=== PATIENT | female | born 1950 | race Caucasian/White ===

== ENCOUNTER 2017-02-19 10:42 | Emergency (ER) | payer MEDICARE, BC, OTHER ==
[~2017-02-19] VITALS: Ht 171.4 cm; Wt 65.9 kg
[2017-02-19] MEDS ORDERED: OXYB15TA (11:00)
[2017-02-19] MEDS ORDERED: CLON0.5T (11:00)
[2017-02-19] MEDS ORDERED: PARO20TA3 (11:00)
[2017-02-19] MEDS ORDERED: OMEP20CA3 (11:00)
[2017-02-19] MEDS ORDERED: MORPHINE 2 MG/ML 1ML SYRINGE IM ONE (11:30)
--- NOTE | 2017-02-19 12:17 | REP ---
Right wrist four views: There is a Colles fracture of the distal wrist with impaction of the fracture fragments. There is no displacement, however there is posterior angulation of the distal fracture fragment. Signed by Galen Rae MD 02/19/2017 12:09 P
--- NOTE | 2017-02-19 12:20 | REP ---
Right hand four views: Comparison is 01/06/2015. There is an acute Colles fracture of the distal radius. The fracture fragments are impacted. There is no displacement. There is an old healed fracture at the base of the fifth digit metacarpal. Mineralization and joint spaces otherwise are unremarkable for patient age. No foreign bodies or calcifications. Signed by Galen Rae MD 02/19/2017 12:11 P
--- NOTE | 2017-02-19 12:21 | REP ---
Right forearm AP and lateral views: There is a Colles fracture of the distal radius. No other fractures are identified. There is no dislocation. Mineralization is normal. There are no calcifications or foreign bodies. Signed by Galen Rae MD 02/19/2017 12:12 P
[2017-02-19] MEDS ORDERED: LIDOCAINE 1% MDV 20ML VIAL IM ONE (12:45)
[2017-02-19] MEDS ORDERED: NORCOTAB PO (13:51)
[2017-02-19 14:04] VITALS: BP 126/75
--- NOTE | 2017-02-19 14:19 | ER ---
DATE OF CONSULTATION: 02/19/2017 CHIEF COMPLAINT: Right wrist fracture. HISTORY: This is a 66-year-old [id number] woman who is retired and who fell today on the ice injuring her right wrist. She is noted to have some dorsal angulation and Colles fracture, right wrist. I was asked to evaluate her for this. She denies any other injury. PAST MEDICAL HISTORY: Otherwise unremarkable aside from depression. MEDICATIONS: Include paroxetine. ALLERGIES: She has no known drug allergies. SOCIAL HISTORY: She is a nonsmoker. Lives here locally. Retired from working in various hospitals. PHYSICAL EXAMINATION: She is alert, oriented no acute distress. HEENT extraocular muscles intact. She has a regular rate and rhythm to her pulse. Nonlabored breathing. Benign abdomen. Right upper extremity demonstrates some dorsal angular deformity of her wrist. She has some decreased range of motion of her fingers but good perfusion. She reports intact sensation throughout her fingertips, and again has decreased range of motion of her fingers, cannot make full fist. Skin is otherwise intact. Radiographs were reviewed which demonstrated distal radius Colles fracture with dorsal angulation to a moderate degree. IMPRESSION: Right Colles fracture, dysangulated. RECOMMENDATIONS: I have talked to her about the options of surgical versus closed treatment and casting. I explained that sometimes these need plates or external fixator devices. Typically, I would try a closed reduction with a hematoma block and she wished to go ahead with this. She understood small risk of malunion, nonunion, loss of reduction, need for further surgery, stiffness, ongoing pain, small risk of infection, nerve injury. She does mention that she had a fifth metacarpal fracture in the past and had significant difficulty getting at the heal. I then under sterile conditions injected some 1% plain lidocaine into her fracture site. She tolerated this well. After a few minutes, I hung her fingers up in a finger traps, put some weight on her upper arm and then gently manipulated the fracture into a much improved clinical position. Her fingers move quite normally and her wrist appeared to be in excellent alignment. Post reduction x-rays, AP and lateral, are viewed and they show excellent reduction and alignment of the fracture in both views. It is essentially anatomically reduced. The mold is in some flexion and ulnar deviation to try to keep this fracture well reduced. IMPRESSION: 1. Status post Colles fracture. 2. Status post reduction in good position. RECOMMENDATIONS: 1. Pain medication. 2. Sling. 3. Ice, elevate. 4. Stay away from anti-inflammatory medications which can inhibit healing and with her history of delayed healing of a hand, I think this is particularly important. 5. Followup in the orthopedic office in 5-7 days with a repeat x-ray of her wrist in the splint. She will also call or return if she has increasing pain, loss of reduction, decreased range of motion of her fingers, neurovascular changes, etc.
--- NOTE | 2017-02-19 16:30 | REP ---
AP, LATERAL RIGHT WRIST, TWO VIEWS: HISTORY: Fracture. COMPARISON: 11:48 am, 02/19/2017 A plastic cast is present obscuring detail. There is a nondisplaced fracture of the distal radius. There is no dislocation. IMPRESSION: Nondisplaced fracture of the distal radius. There is anatomic alignment through plaster. Signed by Keaton Markham MD 02/19/2017 04:33 P
== END 2017-02-19 14:06 | disposition home or self-care (01) ==
LOC: M ED 10:42
DX: S52.531A Colles' fracture of right radius, initial encounter for closed fracture (principal); W01.0XXA Fall on same level from slipping, tripping and stumbling without subsequent striking against object, initial encounter; Y92.018 Other place in single-family (private) house as the place of occurrence of the external cause; Y93.89 Activity, other specified; Y99.8 Other external cause status; K22.70 Barrett's esophagus without dysplasia; F41.9 Anxiety disorder, unspecified; F33.9 Major depressive disorder, recurrent, unspecified; K44.9 Diaphragmatic hernia without obstruction or gangrene; Z79.899 Other long term (current) drug therapy

== ENCOUNTER → 2018-03-25 | Outpatient (CLI) | payer MEDICARE, BC, OTHER ==
[~2018-03-25] MED LIST: CLON0.5T8; NORCOTAB PO; OMEP20CA3; OXYB15TA; PARO20TA3
[2018-03-25 18:03] LABS: CALCIUM LEVEL 9.1 MG/DL (8.8-10.2); CREATININE FOR GFR 1.01 MG/DL (0.55-1.30); POTASSIUM SERUM 4.5 MEQ/L (3.5-5.1)
== END ==
LOC: M SMT 14:26
PROVIDERS: ATTEND Internal Medicine Gastroenterology
DX: R94.4 Abnormal results of kidney function studies (principal)

== ENCOUNTER → 2019-10-05 | Outpatient (CLI) | payer MEDICARE, BC, OTHER ==
[~2019-10-05] MED LIST changes: +CLON0.5T2; -CLON0.5T8; +HYDR-3715 PO; -NORCOTAB PO; +OMEP1CAP73; -OMEP20CA3; -OXYB15TA; +OXYB15TA14
== END ==
LOC: M WUC 11:44
PROVIDERS: ATTEND Physician Assistant Medical
DX: N18.3 Chronic kidney disease, stage 3 (moderate) (principal); E78.5 Hyperlipidemia, unspecified; R79.9 Abnormal finding of blood chemistry, unspecified

== ENCOUNTER → 2020-03-12 | Outpatient (CLI) | payer SELFPAY | LOC: M LABSMTC 12:40 | PROVIDERS: ATTEND Pediatrics | DX: Z20.828 Contact with and (suspected) exposure to other viral communicable diseases (principal) ==

== ENCOUNTER → 2020-11-29 | Outpatient (REF) | payer MEDICARE, OTHER | LOC: M LAB REF 21:05 | PROVIDERS: ATTEND Physician Assistant | DX: R05 Cough (principal) ==

== ENCOUNTER → 2020-12-16 | Outpatient (CLI) | payer MEDICARE, BC, OTHER ==
--- NOTE | 2020-12-17 21:09 | REPVR ---
PROCEDURE INFORMATION: Exam: MR Cervical Spine Without Contrast Exam date and time: 12/16/2020 2:10 PM Age: 70 years old Clinical indication: Neck pain; Additional info: Radiculopathy TECHNIQUE: Imaging protocol: Multiplanar magnetic resonance images of the cervical spine without contrast. COMPARISON: No relevant prior studies available. FINDINGS: Vertebrae: Normal alignment. Normal marrow signal. Mild endplate degenerative changes. Multilevel facet DJD. Small C7 superior endplate Schmorl's node. Spinal cord: Normal signal. No cord compression. No syrinx or mass. C2-C3: No disc herniation or spinal stenosis. No significant foraminal stenosis. C3-C4: Mild disc degeneration with loss of disc height and small posterior disc bulge. No spinal stenosis. No significant foraminal stenosis. C4-C5: Mild disc desiccation. No disc herniation or spinal stenosis. No significant foraminal stenosis. C5-C6: Disc degeneration with disc space narrowing and broad based posterior disc bulge. Left lateral disc protrusion extending into the left neural foramen measuring 6 x 4 x 8 mm. No spinal stenosis or cord compression. Severe left foraminal stenosis. C6-C7: Disc degeneration with disc space narrowing and broad based posterior disc bulge. No spinal stenosis. Moderate foraminal stenosis. C7-T1: Mild disc degeneration. No disc herniation or spinal stenosis. Mild left foraminal stenosis. Soft tissues: Unremarkable. Vertebral arteries: Expected flow voids in the vertebral arteries. IMPRESSION: 1. Mild degenerative spondylosis with multilevel foraminal stenosis as above. No significant spinal stenosis or cord compression. 2. Left lateral disc protrusion causing severe left foraminal stenosis at C5-C6. Electronically signed by: Ronal Roblero On 12/17/2020 21:08:38 PM
== END ==
LOC: M PLAIMG 12:56
PROVIDERS: ATTEND Orthopaedic Surgery
DX: M50.123 Cervical disc disorder at C6-C7 level with radiculopathy (principal); M50.122 Cervical disc disorder at C5-C6 level with radiculopathy; M50.11 Cervical disc disorder with radiculopathy, high cervical region; M47.22 Other spondylosis with radiculopathy, cervical region

== ENCOUNTER → 2021-02-17 | Outpatient (REF) | LOC: M LABSMTC 11:12 | PROVIDERS: ATTEND Pediatrics | DX: Z20.822 Contact with and (suspected) exposure to COVID-19 (principal) ==